=== PATIENT | female | born 1975 | race Two or more races ===

== ENCOUNTER 2021-09-24 09:05 | Inpatient (IN) | payer MEDICAID, OTHER ==
[~2021-09-24] VITALS: Ht 152.4 cm; Wt 86.0 kg
[2021-09-24 10:26] LABS: Basophils # (auto) 0 10 ^3/uL (0-0.2); Eosinophils # (auto) 0 10 ^3/uL (0-0.8); Eosinophils % (auto) 0.6 % (0.0-7.0); Hemoglobin 8.9 g/dL (12.2-16.2); Lymphocytes # (auto) 1.2 10 ^3/uL (0.4-5.4); Monocytes # (auto) 0.2 10 ^3/uL (0-1.3); Nucleated Red Blood Cells % 0.1 %; White Blood Cell 6.7 10^3/uL (4.4-10.8)
[2021-09-24 10:28] LABS: Basophils % (auto) 0.4 % (0.0-2.0); Hematocrit 29.1 % (36.0-46.0); Mean Corpuscular Hemoglobin 21.8 pg (28.0-32.0); Mean Corpuscular Hgb Conc. 30.4 g/dL (32.0-36.0); Mean Corpuscular Volume 71.9 fL (80.0-100.0); Monocytes % (auto) 3.5 % (0.0-12.0); Neutrophils # (auto) 5.2 10 ^3/uL (1.6-8.6); Neutrophils % (auto) 77.5 % (37.0-80.0); Red Blood Cells 4.05 10^6/uL (4.0-5.20)
[2021-09-24 11:01] LABS: Albumin 3.9 g/dL (3.4-5.0); Calcium 9.2 mg/dL (8.5-10.1); Potassium 4.3 mmol/L (3.5-5.1)
[2021-09-24 11:05] LABS: BUN/Creatinine Ratio 15.6; Bilirubin, Total 0.4 mg/dL (0.2-1.0)
[2021-09-24 14:13] LABS: Urine Bacteria NONE SEEN /hpf (None Seen); Urine Blood Negative /uL (Negative); Urine Mucus FEW (None Seen); Urine Specific Gravity 1.022 (1.001-1.035); Urine WBC 1 /hpf (0 - 5)
[2021-09-24] MEDS ORDERED: KETOROLAC TROMETH 30 MG/ML 1ML VIAL IV ONE (14:30)
[2021-09-24] MEDS ORDERED: SODIUM CHLORIDE 0.9% 1,000 ML IV ONE (14:30)
[2021-09-24] MEDS ORDERED: metroNIDAZOLE 500MG/100ML 100 ML IV ONE (16:15)
[2021-09-24] MEDS ORDERED: cefTRIAXone 1GM/50ML D5W 50 ML IV ONE (16:15)
[2021-09-24] MEDS ORDERED: TEMAZEPAM 15 MG CAP PO PRN (16:45)
[2021-09-24] MEDS ORDERED: DOCUSATE SOD 100 MG CAP PO PRN (16:45)
[2021-09-24] MEDS ORDERED: ONDANSETRON HCL 4 MG/2 ML VIAL IV PRN (16:45)
[2021-09-24] MEDS ORDERED: MORPHINE SULFATE 4 MG/ML SYR/VIAL IV PRN (16:45)
[2021-09-24] MEDS ORDERED: PANTOPRAZOLE 40 MG/10 ML VIAL INJ IV ONE (17:00)
[2021-09-24] MEDS: SODIUM CHLORIDE 0.9% 1,000 ML IV SCH (17:09)
[2021-09-24 17:30] VITALS: BP 112/74
[2021-09-24 18:04] LABS: Cholesterol 205 mg/dL (< 200)
[2021-09-24 18:06] LABS: HDL Cholesterol 54 mg/dL (40-59); LDL Cholesterol 106 mg/dL (< 100); Triglycerides 305 mg/dL (< 150)
[2021-09-24 18:16] LABS: Alcohol, Urine < 3.0 mg/dL (0-10); Amphetamine Screen, Urine NEGATIVE (NEGATIVE); Barbiturate Scree,Urine NEGATIVE (NEGATIVE); Benzodiazephine Screen, Urine POSITIVE (NEGATIVE); Cannabinoid Screen, Urine NEGATIVE (NEGATIVE); Cocaine Screen, Urine NEGATIVE (NEGATIVE); Opiate Scree,Urine NEGATIVE (NEGATIVE); Phencyclidine Screen, Urine NEGATIVE (NEGATIVE)
[2021-09-24 18:44] LABS: INR 1.02 (0.9-1.15)
[2021-09-24 18:49] VITALS: BP 112/74
[2021-09-24 18:57] LABS: Free T4 (Free Thyroxine) 1.09 ng/dL (0.89-1.76)
[2021-09-24 18:58] LABS: Free T3 2.56 pg/mL (2.3-4.2)
[2021-09-24] MEDS ORDERED: GABA300C10 PO (19:30)
[2021-09-24 20:55] VITALS: BP 107/75
[2021-09-24] MEDS: MORPHINE SULFATE INJECTION 2 MG/ML SYRG IV PRN (20:55)
[2021-09-24] MEDS: metroNIDAZOLE 500MG/100ML 100 ML IV SCH (21:47)
[2021-09-24 22:00] VITALS: BP 101/75
[2021-09-25] MEDS: SODIUM CHLORIDE 0.9% 1,000 ML IV SCH ×3 (01:21→17:45)
[2021-09-25] MEDS: MORPHINE SULFATE INJECTION 2 MG/ML SYRG IV PRN ×2 (01:22→04:50)
[2021-09-25 05:08] VITALS: BP 124/72
[2021-09-25] MEDS: metroNIDAZOLE 500MG/100ML 100 ML IV SCH ×3 (06:22→21:38)
[2021-09-25 08:31] VITALS: BP 109/62
[2021-09-25] MEDS: cefTRIAXone 1GM/50ML D5W 50 ML IV SCH (09:00)
[2021-09-25] MEDS: PANTOPRAZOLE 40 MG/10 ML VIAL INJ IV SCH (10:00)
[2021-09-25] MEDS: ENOXAPARIN SOD 40 MG/0.4 ML SYRINGE SC SCH (10:00)
[2021-09-25] MEDS ORDERED: MORPHINE SULFATE 4 MG/ML SYR/VIAL IV PRN (10:30)
[2021-09-25 12:51] VITALS: BP 122/74
[2021-09-25] MEDS: GABAPENTIN 300 MG CAP PO SCH ×2 (14:00→21:38)
[2021-09-25 16:10] VITALS: BP 106/61
[2021-09-25] MEDS: HYDROcodone-ACET 5/325MG TAB PO PRN (20:14)
[2021-09-25 22:00] VITALS: BP 117/88
[2021-09-26] MEDS: SODIUM CHLORIDE 0.9% 1,000 ML IV SCH ×2 (02:31→10:25)
[2021-09-26] MEDS: HYDROcodone-ACET 5/325MG TAB PO PRN ×2 (04:03→09:54)
[2021-09-26 05:10] VITALS: BP 130/70
[2021-09-26] MEDS: metroNIDAZOLE 500MG/100ML 100 ML IV SCH (05:54)
[2021-09-26] MEDS: GABAPENTIN 300 MG CAP PO SCH (05:54)
[2021-09-26] MEDS ORDERED: METR500T PO (08:58)
[2021-09-26] MEDS ORDERED: PANT40T PO (08:58)
[2021-09-26] MEDS ORDERED: LEVO500T31 PO (08:58)
[2021-09-26 09:00] VITALS: BP 115/74
[2021-09-26] MEDS: cefTRIAXone 1GM/50ML D5W 50 ML IV SCH (09:52)
[2021-09-26] MEDS: PANTOPRAZOLE 40 MG/10 ML VIAL INJ IV SCH (09:52)
[2021-09-26] MEDS: ENOXAPARIN SOD 40 MG/0.4 ML SYRINGE SC SCH (09:53)
[2021-09-26 12:54] VITALS: BP 126/70
== END 2021-09-26 14:00 | disposition home or self-care (01) | DRG 249 ==
LOC: ER 09:05 → CENTRAL 16:42 → ER 17:37
PROVIDERS: ADMIT Registered Nurse; ATTEND Family Medicine
DX: K52.9 Noninfective gastroenteritis and colitis, unspecified (principal); D50.9 Iron deficiency anemia, unspecified; E11.9 Type 2 diabetes mellitus without complications; E78.00 Pure hypercholesterolemia, unspecified; F17.210 Nicotine dependence, cigarettes, uncomplicated; G89.29 Other chronic pain; N28.1 Cyst of kidney, acquired; M54.9 Dorsalgia, unspecified; Z20.822 Contact with and (suspected) exposure to COVID-19; Z71.6 Tobacco abuse counseling; Z90.49 Acquired absence of other specified parts of digestive tract; Z98.51 Tubal ligation status
CPT/HCPCS: 36415; 74176; 80053; 80061; 80307; 81001; 83036; 83605; 84439; 84443; 84481; 85025; 85610; 86677; 87040; 96365; 96368; 96375; C9113; G0378; J0696; J1885; J3490